=== PATIENT | female | born 1955 | race Two or more races ===

== ENCOUNTER → 2017-04-13 | Outpatient (CLI) | payer OTHER ==
--- NOTE | ~2017-04-13 | CT17 ---
[facility] A Service of [facility] RADIOLOGY TEXT RESULTS PATIENT: QUINN SILVA LOCATION: [facility] : 57 UNIT #: [id number] AGE: [address]: ELENO LÓPEZ MD SEX: F ORDER DR: [id number] [address] [address] [id number] O MR#: [id number] Acc #: [id number] NAME: QUINN SILVA : 1955 SEX: F STUDY DATE/TIME: 04/13/2017 11:48 UNIT: [facility] ROOM: STUDY DESCRIPTION: CT Angio Head Attending Physician: Eleno López M.D. Referring Physician: Eleno López M.D. Ordering Physician: Eleno López M.D. Primary Care Physician: Eleno López M.D. MEDICAL IMAGING REPORT This report is preliminary unless electronic signature is present. PROCEDURE Axial contrast-enhanced head and neck CT angiogram with three-dimensional reformats. COMPARISON Previous head CT dated 09/13/2013 clinical history is 2-month history of left monocular blurred vision and left tinnitus. This CT exam was performed with one or more of the following radiation dose reduction techniques: automatic exposure control, adjustment of mA and/or kV according to patient size, and iterative reconstruction. FINDINGS There is a normal arch branching pattern without proximal great vessel stenosis. Both vertebral arteries are symmetrically patent. The carotid bifurcations are normal bilaterally without evidence of plaque or stenosis by NASCET or other criteria. The upper vertebral arteries are normally patent. Intracranially the [place] is complete the carotid siphons are patent. There is no aneurysm or flow-limiting stenosis, or branch vessel occlusion or region or zone of hypoperfusion. 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 Hydrocephalus or other extraaxial fluid collection. The cervical soft tissues are unremarkable. The bony structures are normal except for slight rack right maxillary sinus mucosal thickening. IMPRESSION Essentially normal negative head neck CT angiogram. No intra extracranial aneurysm or flow-limiting stenosis in the cervical carotid bifurcations [facility] A Service of [facility] RADIOLOGY TEXT RESULTS PATIENT: QUINN SILVA LOCATION: [facility] : 57 UNIT #: [id number] AGE: [address]: ELENO LÓPEZ MD SEX: F ORDER DR: are normal.. Dictated by... Vignesh Loya M.D. THIS IS AN ELECTRONICALLY VERIFIED REPORT Vignesh Loya M.D. at 05/27/2017 5:05 PM ROSEMARY/tootie TD: 04/22/2017 15:52 JOB #: [id number] MEDICAL IMAGING REPORT Page 1 of 1
--- NOTE | ~2017-04-13 | CT23 ---
[facility] A Service of [facility] RADIOLOGY TEXT RESULTS PATIENT: QUINN SILVA LOCATION: [facility] : 57 UNIT #: [id number] AGE: [address]: ELENO RASHID MD SEX: F ORDER DR: [id number] [place] [id number] O MR#: [id number] Acc #: [id number] NAME: QUINN SILVA : 1955 SEX: F STUDY DATE/TIME: 04/13/2017 11:48 UNIT: [facility] ROOM: STUDY DESCRIPTION: CT Angio Neck Attending Physician: Eleno Rashid M.D. Referring Physician: Eleno Rashid M.D. Ordering Physician: Eleno Rashid M.D. Primary Care Physician: Eleno Rashid M.D. MEDICAL IMAGING REPORT This report is preliminary unless electronic signature is present. EXAM CT angiogram of the neck 04/13/2017 Result text under order number ending [id number] CT angiogram of the head and neck 04/13/2017. Please see this order for result text. Dictated by... Vignesh Loya M.D. THIS IS AN ELECTRONICALLY VERIFIED REPORT Vignesh Loya M.D. at 04/23/2017 2:16 PM ROSEMARY/tootie TD: 04/22/2017 15:54 JOB #: [id number] MEDICAL IMAGING REPORT Page 1 of 1
[2017-04-13 11:41] LABS: POC - GFR >60.0 mL/min (>60)
== END | disposition home or self-care (01) ==
LOC: SCT 10:30
PROVIDERS: Family Medicine
DX: R51 Headache (principal)
CPT/HCPCS: 70496; 70498; 82565; Q9967